=== PATIENT | female | born 1945 | race Caucasian/White ===

== ENCOUNTER → 2016-11-03 | Outpatient (CLI) | payer OTHER ==
--- NOTE | 2016-11-03 15:01 | MAMMOGRAPHY REPORT ---
BILATERAL DIGITAL SCREENING MAMMOGRAM WITH CAD: 11/03/2016 CLINICAL HISTORY: Routine screening. Patient has no complaints. TECHNIQUE: Current study was also evaluated with a Computer Aided Detection (CAD) system. Bilatera l CC and MLO views were obtained. The exam is slightly suboptimal due to inability of the patient to adequately position for the left MLO view, with pectoralis muscle not well-visualized on the MLO vi ew. COMPARISON: Comparison is made to exams dated: 10/28/2015 mammogram, 10/24/2014 mammogram, 09/12/2013 mammogram, 06/29/2011 ultrasound, 06/29/2011 mammogram, and 08/02/2012 mammogram - [facility]. BREAST COMPOSITION: There are scattered areas of fibroglandular density in both breasts. FINDINGS: No suspicious masses, calcifications, or areas of architectural distortion are noted in e ither breast. There has been no significant interval change compared to prior exams. Nodular asymme tries seen within the right breast are stable compared to prior exams. Bilateral benign-appearing c alcifications are also stable. IMPRESSION: ACR BI-RADS CATEGORY 2: BENIGN There is no mammographic evidence of malignancy. A 1 year screening mammogram is recommended. The p atient will receive written notification of the results. Approximately 10% of breast cancers are not detected with mammography. A negative mammographic repor t should not delay biopsy if a clinically suggestive mass is present. Leida Hearn M.D. /:11/03/2016 14:07:53 Plant Maintenance Technician: Jessica Beth, [facility] letter sent: Normal 1/2 BI-RADS Code: ACR BI-RADS Category 2: Benign
== END | disposition home or self-care (01) ==
LOC: C.MAMM 11:22
PROVIDERS: ATTEND Family Medicine
DX: Z12.31 Encounter for screening mammogram for malignant neoplasm of breast (principal)

== ENCOUNTER → 2017-05-04 | Outpatient (CLI) | payer OTHER ==
[2017-05-04 13:13] LABS: BASO % 0.7 %; BASO ABS # 0.04 K/uL (0-0.2); COMPLETE YES; EOS % 3.1 %; HEMATOCRIT 42.5 % (37-47); IG% 0.2 %; LYMPH % 26.4 %; LYMPH ABS # 1.52 K/uL (1.2-3.4); MEAN CELL VOLUME 92.2 fL (80-100); MEAN CORPUSCULAR HEMOGLOBIN 31.9 pg (25-34); MEAN CORPUSCULAR HGB CONC 34.6 g/dl (32-36); MEAN PLATELET VOLUME 10.3 fL (7.4-10.4); MONO % 8.7 %; NEUT % 60.9 %; PLATELET COUNT 222 K/uL (130-400); RED BLOOD COUNT 4.61 M/uL (4.2-5.4); WHITE BLOOD COUNT 5.76 K/uL (4.8-10.8)
[2017-05-04 13:47] LABS: ALT/SGPT 30 U/L (12-78); BLOOD UREA NITROGEN 13 mg/dl (7-18); BUN/CREATININE RATIO 15.1 (10-20); CALCIUM 9.4 mg/dl (8.5-10.1); CARBON DIOXIDE 28 mmol/L (21-32); CHLORIDE 111 mmol/L (98-107); CHOLESTEROL 145 mg/dl (0-200); CREATININE 0.84 mg/dl (0.60-1.20); GLUCOSE 86 mg/dl (70-99); POTASSIUM 4.5 mmol/L (3.5-5.1); SODIUM 144 mmol/L (136-145); TRIGLYCERIDES 154 mg/dl (0-150); VERY LOW DENSITY LIPOPROT CALC 31 mg/dl
[2017-05-04 13:58] LABS: ALB/GLOB RATIO 1.2 (0.9-2); ALKALINE PHOSPHATASE 90 U/L (45-117); AST/SGOT 26 U/L (15-37); CHOLESTEROL/HDL RATIO 3.5; HDL CHOLESTEROL 42 mg/dl; LDL CHOLESTEROL CALCULATED 72 mg/dl
== END | disposition home or self-care (01) ==
LOC: C.LABMFLN 09:02
PROVIDERS: ATTEND Family Medicine
DX: I65.29 Occlusion and stenosis of unspecified carotid artery (principal); E78.5 Hyperlipidemia, unspecified

== ENCOUNTER → 2017-06-02 | Outpatient (CLI) | payer OTHER ==
--- NOTE | 2017-06-02 13:32 | DIAGNOSTIC IMAGING REPORT ---
BILATERAL CAROTID DOPPLER STUDY HISTORY: Carotid artery stenosis. COMPARISON: None. TECHNIQUE: Real-time, grayscale, and color Doppler sonography of the carotid arteries was performed. Imaging reviewed in the transverse and longitudinal planes. All measurements were calculated based on NASCET criteria. FINDINGS: Antegrade flow is seen in the bilateral vertebral arteries. The brachial pressures are hemodynamically similar. Mild calcified plaque within the bilateral carotid bifurcations. The peak systolic velocity within the right ICA is 102 cm/s. The right systolic ratio is 1.5. The peak systolic velocity within the left ICA is 103 cm/s. The left systolic ratio is 1.2. IMPRESSION: No hemodynamically significant stenosis seen within the carotid arteries. Electronically signed by: Antwon Pan M.D. 06/02/2017 1:31 PM Dictated Date/Time: 06/02/2017 1:27 PM
== END | disposition home or self-care (01) ==
LOC: C.ULTR 12:52
PROVIDERS: ATTEND Family Medicine
DX: I65.29 Occlusion and stenosis of unspecified carotid artery (principal)

== ENCOUNTER → 2017-06-02 | Outpatient (CLI) | payer OTHER | END | disposition home or self-care (01) | LOC: C.MAMM 13:57 | PROVIDERS: ATTEND Family Medicine | DX: M81.0 Age-related osteoporosis without current pathological fracture (principal); M85.852 Other specified disorders of bone density and structure, left thigh ==

== ENCOUNTER → 2017-11-10 | Outpatient (CLI) | payer OTHER ==
--- NOTE | 2017-11-11 07:20 | MAMMOGRAPHY REPORT ---
BILATERAL DIGITAL SCREENING MAMMOGRAM TOMOSYNTHESIS WITH CAD: 11/10/2017 CLINICAL HISTORY: Routine screening. Patient has no complaints. TECHNIQUE: Breast tomosynthesis in addition to standard 2D mammography was performed. Current study was also evaluated with a Computer Aided Detection (CAD) system. COMPARISON: Comparison is made to exams dated: 11/03/2016 mammogram, 10/28/2015 mammogram, 10/24/2014 m ammogram, 09/12/2013 mammogram, 08/02/2012 mammogram, and 06/29/2011 mammogram - [facility]. BREAST COMPOSITION: There are scattered areas of fibroglandular density in both breasts. FINDINGS: There is a 9 mm asymmetry seen within the right medial breast with possible associated calc ifications, possibly projecting superiorly on the MLO view. Recommend spot magnification views, poss ible spot compression tomosynthesis views, and possible breast ultrasound for further evaluation. The remainder of both breasts are stable compared to prior exams, without suspicious masses, calcific ations, or areas of architectural distortion noted. Other nodular asymmetries within the right breas t are stable compared to prior exams. IMPRESSION: ACR BI-RADS CATEGORY 0: INCOMPLETE EVALUATION: NEED ADDITIONAL IMAGING EVALUATION Right medial breast asymmetry, for which additional imaging evaluation is recommended. The patient w ill be called to schedule an appointment. Approximately 10% of breast cancers are not detected with mammography. A negative mammographic report should not delay biopsy if a clinically suggestive mass is present. Leida Hearn M.D. /:11/10/2017 15:53:16 Acquisition Professional: Diana Cooley RT(R)(M)(BD), [facility] letter sent: Addl Imaging 0 BI-RADS Code: ACR BI-RADS Category 0: Incomplete Evaluation: Need Additional Imaging Evaluation
== END | disposition home or self-care (01) ==
LOC: C.MAMM 13:17
PROVIDERS: ATTEND Family Medicine
DX: Z12.31 Encounter for screening mammogram for malignant neoplasm of breast (principal); R92.8 Other abnormal and inconclusive findings on diagnostic imaging of breast

== ENCOUNTER → 2017-11-21 | Outpatient (CLI) | payer OTHER ==
--- NOTE | 2017-11-22 07:42 | MAMMOGRAPHY REPORT ---
UNILATERAL RIGHT DIGITAL DIAGNOSTIC MAMMOGRAM TOMOSYNTHESIS AND TARGETED RIGHT ULTRASOUND: 11/21/2017 CLINICAL HISTORY: 72-year-old woman called back from screening mammography for an asymmetry with poss ible associated calcifications in the upper inner right breast. TECHNIQUE: Spot magnification right CC, ML and spot compression tomosynthesis right CC and MLO views were obtained. COMPARISON: Comparison is made to exams dated: 11/10/2017 mammogram, 10/28/2015 mammogram, 11/03/2016 m ammogram, 10/24/2014 mammogram, 08/02/2012 mammogram, and 06/29/2011 ultrasound - [facility]. BREAST COMPOSITION: There are scattered areas of fibroglandular density in the right breast. FINDINGS: There is an ill-defined 6 x 7 x 9 mm mass in the upper inner middle one third of the right breast. There are associated microcalcification, best seen on the spot magnification views, located superior and posterior to the mass by 2 mm. The grouping of microcalcifications measure 1.8 mm in ma ximum dimension. These findings are suspicious for malignancy and further evaluation with ultrasound was performed. No other obvious masses, calcifications or areas of architectural distortion are see n. Targeted ultrasound was performed in the upper inner quadrant of the right breast. In the 1:00 axis, 5 cm from the nipple, there is an ill-defined taller than wide hypoechoic solid mass with indistinct margins measuring approximately 5 x 6 x 6 mm on ultrasound. This corresponds with the mammographic finding and is suspicious. Definitive characterization with an ultrasound-guided core biopsy is kendall mmended. IMPRESSION: ACR BI-RADS CATEGORY 4: SUSPICIOUS, TARGETED ULTRASOUND ACR BI-RADS CATEGORY 4: SUSPICIO US There is a persistent 6 x 7 x 9 mm mammographic mass with adjacent 1.8 mm cluster of microcalcificati ons in the 1:00 middle one third of the right breast, with sonographic correlate seen in the 1:00 axi s, 5 cm from nipple. The mass and calcifications most likely represent the same process and therefor e ultrasound-guided core biopsy is recommended for definitive characterization. These results and recommendations were discussed with the patient at the time of the exam. She tenta tively scheduled the right breast biopsy prior to leaving our department. Approximately 10% of breast cancers are not detected with mammography. A negative mammographic report should not delay biopsy if a clinically suggestive mass is present. Marisela Llamas M.D. ay/:11/21/2017 12:09:17 Vender: Jessica Beth, [facility] letter sent: Abnormal 4/5 BI-RADS Code: ACR BI-RADS Category 4: Suspicious Ultrasound BI-RADS: ACR BI-RADS Category 4: Suspici ous
== END | disposition home or self-care (01) ==
LOC: C.MAMM 10:06
PROVIDERS: ATTEND Family Medicine
DX: N63.10 Unspecified lump in the right breast, unspecified quadrant (principal); R92.0 Mammographic microcalcification found on diagnostic imaging of breast

== ENCOUNTER → 2017-11-29 | Outpatient (CLI) | payer OTHER ==
--- NOTE | 2017-11-29 11:02 | Discharge Instructions ---
Discharge Instructions Procedure Procedure Date: Nov 29, 2017. Reason for visit: Right Mass. Discharge Discharge Date: Nov 29, 2017. Discharge Diagnosis: post right breast ultrasound guided core biopsy Instructions Activity Recommendations: Additional Limitations (see below) Return to School/Work: no limitations Recommended Home Diet: No Limitations Provider Instructions: ACTIVITY RECOMMENDATIONS: * No lifting, pushing, pulling or exercising the affected side for three days. RETURN TO SCHOOL/WORK: * You may return to work/school after the procedure, but do not perform any strenuous activities for 24 to 48 hours. MEDICATIONS: * Tylenol (two 325 mg) every four to six hours if needed for mild pain (if not allergic to Tylenol). DIET: * Resume previous diet. SPECIAL CARE INSTRUCTIONS: * Keep biopsy site dry for 24 hours. May shower after 24 hours, but do not soak (bathe) incision. * May remove Tegaderm (plastic patch) tomorrow AFTER showering. * Leave the steri-strips on for one week. Allow the steri-strips to fall off by themselves. If not off after one week, you may remove them. You may place a Bandaid crosswise over the strips, if desired. * Apply ice 10 minutes on and 10 minutes off as needed. * Wear a bra at bedtime to sleep more comfortably for 2-3 days. * Your referring physician should have the results after approximately 5 to 7 business days. * Call for unusual bleeding, fever, drainage, etc or if you have any questions call [phone] during normal business hours or after hours call Dr Llamas, . FOLLOW UP VISIT: Follow-up with Referring Physician as scheduled. Concha Palomino Recommendations: Call your doctor if: * Temperature above 101 degrees * Pain not relieved by pain medicine ordered * There is increased drainage or redness from any incision * You have any unanswered questions or concerns. Your Doctors Instructions noted above were prepared by provider Marisela Llamas. Patient Signature Section: Patient Instructions Signature Page Leida Reich Patient (or Guardian) Signature/Date: I have read and understand the instructions given to me by my caregivers. Caregiver/RN/Doctor Signature/Date: The above-named patient and/or guardian has received patient instructions on this date. + Original Patient Signature Page (only) stays with chart. Please make copy for patient.
--- NOTE | 2017-11-30 07:51 | MAMMOGRAPHY REPORT ---
ULTRASOUND GUIDED BIOPSY RIGHT BREAST: 11/29/2017 CLINICAL HISTORY: 72-year-old woman presents for ultrasound-guided core biopsy of a 6 x 7 x 9 mm mass with associated faint microcalcification in the 1:00 right breast. COMPARISON: Comparison is made to exams dated: 11/21/2017 mammogram, 11/21/2017 ultrasound, 11/10/2017 ma mmogram, 11/03/2016 mammogram, 10/28/2015 mammogram, and 10/24/2014 mammogram - [facility] nter. Right PATIENT CONSENT: The procedure, risks and benefits were discussed with the patient and informed consent was obtained both verbally and in writing. Specific risks to this procedure include: bleedi ng, infection, puncture of adjacent structure, nontarget biopsy, sampling error, pain, metal allergy and medication reaction. PROCEDURE DESCRIPTION: A time out was performed and the right breast was agreed as the site of biopsy . The skin was prepped and draped in the usual sterile fashion. The taller than wide, hypoechoic ninoska d 9 mm mass in the 1:00 right breast was chosen as the target for biopsy. Subcutaneous and intraparen chymal 1% buffered lidocaine, with and without epinephrine, was administered as local anesthesia. A s kin incision was made. Through the incision, 4 samples were taken with a 14 gauge Achieve biopsy dev ice. A ribbon shaped metallic marker was placed at the biopsy site. Hemostasis was achieved after man ual compression. The patient tolerated the procedure well and there was no immediate complication. T he samples were sent to the pathology department in an appropriately labeled container. Postprocedure right CC and ML tomosynthesis images were obtained. There is a new ribbon-shaped biops y marker clip associated with the mammographic mass and calcifications in question. No significant p ostbiopsy hematoma is seen. IMPRESSION: ULTRASOUND GUIDED BIOPSY Status post ultrasound-guided core biopsy of an indeterminate 9 mm mass with associated microcalcific ation in the 1:00 middle one third of the right breast, with ribbon-shaped biopsy marker clip placed at the site. The patient will receive notification of the biopsy results from her referring physician. Marisela Llamas M.D. ay/:11/29/2017 11:48:25 Special Police Officer: Christian WYATT)(M), [facility]
--- NOTE | 2017-11-30 07:51 | MAMMOGRAPHY REPORT ---
UNILATERAL RIGHT DIGITAL DIAGNOSTIC MAMMOGRAM TOMOSYNTHESIS: 11/29/2017 CLINICAL HISTORY: Status post ultrasound-guided core biopsy of an indeterminate 9 mm mass in the 1:00 right breast. Please refer the report from right breast ultrasound-guided core biopsy performed at the same time fo r full detail. IMPRESSION: POST PROCEDURE IMAGING FOR MARKER PLACEMENT Please refer the report from right breast ultrasound-guided core biopsy performed at the same time fo r full detail. Approximately 10% of breast cancers are not detected with mammography. A negative mammographic report should not delay biopsy if a clinically suggestive mass is present. Marisela Llamas M.D. ay/:11/29/2017 11:00:54 Cosmetics Supervisor: Christian GUZMAN(R)(M), [facility] BI-RADS Code: Post Procedure Imaging For Marker Placement
== END | disposition home or self-care (01) ==
LOC: C.MAMM 10:12
PROVIDERS: ATTEND Family Medicine
DX: N63.10 Unspecified lump in the right breast, unspecified quadrant (principal); R92.0 Mammographic microcalcification found on diagnostic imaging of breast; C50.911 Malignant neoplasm of unspecified site of right female breast

== ENCOUNTER → 2017-12-08 | Outpatient (CLI) | payer OTHER ==
[~2017-12-08] MED LIST: ACET-1256 PO; CHOL100027 PO; COEN1CAP17 PO; DIPH25CA65 PO; FAMO20TA11 PO; FLUT0.15 NAE; FSMD/70 PO; HYDR-5688 PO; MULT-728 PO; OMEG10007 PO; PRVC/20 PO
== END | disposition home or self-care (01) ==
LOC: C.LABMFLN 13:21
PROVIDERS: ATTEND Physician Assistant
DX: J02.9 Acute pharyngitis, unspecified (principal)

== ENCOUNTER 2017-12-12 08:09 | Observation (INO) | payer OTHER ==
[2017-12-08 09:05] VITALS: BMI 26.0
--- NOTE | 2017-12-08 09:37 | PAT Medication Instructions ---
Service Date Dec 08, 2017. Current Home Medication List Alendronate/Cholecalciferol (Fosamax+D 70MG/2800 Iu), 1 TABLET PO WK Cholecalciferol (Vitamin D 1000 Unit), 1,000 INTER.UNIT PO QAM Coenzyme Q10 (Ubidecarenone) (Co Q 10), 1 TAB PO QAM Famotidine (Pepcid), 20 MG PO QAM Fish Oil ([place]-3), 1 CAP PO QAM Fluticasone Propionate (Nasal) (Flonase Allergy Relief), 1 SPRAY SARY QAM Multiple Vitamins W/ Minerals (Alive Once Daily Womens 5), 1 TAB PO QAM Pravastatin Sod (Pravastatin Sodium), 1 TAB PO QPM Medication Instructions For Your Scheduled Surgery -Continue as directed: Alendronate/Cholecalciferol (Fosamax+D 70MG/2800 Iu), 1 TABLET PO WK -Continue to hold: Coenzyme Q10 (Ubidecarenone) (Co Q 10), 1 TAB PO QAM Fish Oil ([place]-3), 1 CAP PO QAM - Hold the following medications the morning of surgery: Cholecalciferol (Vitamin D 1000 Unit), 1,000 INTER.UNIT PO QAM Multiple Vitamins W/ Minerals (Alive Once Daily Womens 5), 1 TAB PO QAM - Take the following medications the morning of surgery with a sip of water: Famotidine (Pepcid), 20 MG PO QAM Fluticasone Propionate (Nasal) (Flonase Allergy Relief), 1 SPRAY SARY QAM - Take the following medications as scheduled the night before surgery: Pravastatin Sod (Pravastatin Sodium), 1 TAB PO QPM If you have any questions please call us at [phone] or [phone] or [phone]
[2017-12-08 11:14] LABS: BASO % 0.4 %; BASO ABS # 0.03 K/uL (0-0.2); EOS % 3.2 %; EOS ABS # 0.23 K/uL (0-0.5); HEMATOCRIT 42.3 % (37-47); HEMOGLOBIN 14.6 g/dL (12.0-16.0); IG# 0.01 K/uL (0.00-0.02); LYMPH % 21.6 %; LYMPH ABS # 1.55 K/uL (1.2-3.4); MEAN CELL VOLUME 91.8 fL (80-100); MEAN CORPUSCULAR HEMOGLOBIN 31.7 pg (25-34); MEAN CORPUSCULAR HGB CONC 34.5 g/dl (32-36); MEAN PLATELET VOLUME 10.4 fL (7.4-10.4); MONO % 7.4 %; MONO ABS # 0.53 K/uL (0.11-0.59); NEUT % 67.3 %; NEUT ABS # 4.82 K/uL (1.4-6.5); PLATELET COUNT 222 K/uL (130-400); RED CELL DISTRIBUTION WIDTH CV 12.7 % (11.5-14.5); RED CELL DISTRIBUTION WIDTH SD 42.9 fL (36.4-46.3); WHITE BLOOD COUNT 7.17 K/uL (4.8-10.8)
[2017-12-08 11:32] LABS: CALCIUM 9.1 mg/dl (8.5-10.1); CREATININE 0.89 mg/dl (0.60-1.20); POTASSIUM 3.9 mmol/L (3.5-5.1)
[~2017-12-12] VITALS: Ht 172.7 cm; Wt 77.3 kg
[2017-12-12] VITALS (7 sets, daily range): BP systolic 115–159; BP diastolic 62–79; PULSE 67–102; TEMP 36.5–36.8; O2SAT 91–98; Ht 172.7 cm; Wt 77.3 kg
[~2017-12-12 08:09] MED LIST changes: -ACET-1256 PO; +CLINDAMYCIN IV 900 MG in DEXTROSE 5% 50ML IV SCH; -DIPH25CA65 PO; -HYDR-5688 PO; +LACTATED RINGER'S 1000ML 1,000 ML IV SCH
[2017-12-12] MEDS ORDERED: DIPH25CA65 PO (09:27)
[2017-12-12] MEDS ORDERED: ACET-1256 PO (09:27)
--- NOTE | 2017-12-12 10:10 | DIAGNOSTIC IMAGING REPORT ---
LYMPHOSCINTIGRAPHY CLINICAL HISTORY: Right-sided breast cancer. PROCEDURE: Using standard sterile technique, 4 intradermal and one deep injection of 0.51 mCi of Lymphoseek was placed in the right breast. The patient tolerated the procedure well. There were no immediate complications. The patient was subsequently transported to the surgical suite. No imaging was obtained at the referring physician's request. IMPRESSION: Injection of 0.51 mCi of Lymphoseek in the right breast. Electronically signed by: Milo Raman M.D. 12/12/2017 10:09 AM Dictated Date/Time: 12/12/2017 10:07 AM
--- NOTE | 2017-12-12 10:18 | History & Physical Bridge Note ---
H&P Re-Evaluation Bridge Note: I have examined the patient, reviewed the History & Physical and in the interval since the performance of the History & Physical I have noted the following changes of clinical significance: No changes noted
[2017-12-12] MEDS ORDERED: FENTANYL CITRATE INJ 50 MCG/1 ML 2 ML VIAL ONE (11:57)
[2017-12-12] MEDS ORDERED: PROPOFOL IV EMULSION 10 MG/ML 20 ML VIAL ONE (11:57)
[2017-12-12] MEDS ORDERED: DEXAMETHASONE SOD INJ 4 MG/ML VIAL ONE (11:57)
[2017-12-12] MEDS ORDERED: LIDOCAINE HCL 2% 2 ML VIAL (20MG/ML) ONE (11:57)
[2017-12-12] MEDS ORDERED: ONDANSETRON INJ 2 MG/ML 2 ML VIAL ONE (11:57)
[2017-12-12] MEDS ORDERED: MIDAZOLAM HCL 1 MG/ML 2ML VIAL ONE (11:57)
[2017-12-12] MEDS ORDERED: ONDANSETRON INJ 2 MG/ML 2 ML VIAL IV PRN ×2 (12:00→14:00)
[2017-12-12] MEDS ORDERED: EpHEDrine SULFATE INJ 50 MG/ML AMP IV PRN (12:00)
[2017-12-12] MEDS ORDERED: ATROPINE SULFATE 0.1 MG/ML 5ML SYR IV PRN (12:00)
[2017-12-12] MEDS ORDERED: BUPIVACAINE 0.5 % 5 MG/1 ML MPF 30ML VIAL ONE (12:24)
[2017-12-12] MEDS ORDERED: ISOSULFAN BLUE 10 MG/ML VIAL 5 ML ONE (12:24)
[2017-12-12] MEDS ORDERED: SCOPOLAMINE 1.5 MG TDSY TD ONE (12:37)
[2017-12-12] MEDS ORDERED: PHENYLEPHRINE 100MCG/ML 5ML SYR ONE (13:08)
--- NOTE | 2017-12-12 13:56 | [facility] Operative Report ---
Operative Report Operative Date Dec 12, 2017. Pre-Operative Diagnosis Right Breast Cancer Post-Operative Diagnosis Same as Preop Procedure(s) Performed Right Breast Lumpectomy with Needle Localization and with Right [place] Lymph Node Biopsy Surgeon Dr. Garcia Program Lead Surgeon(s) None Estimated Blood Loss 15 ml Findings clip/ mass w/n specimen SLN frozen negative Specimens Frozen 1. Right Breast [place] Lymph Node left room at 1317 Permanent A. Right breast tissue skin anterior, long silk lateral, short silk medial, methylene blue deep B. Additional superior tissue long silk lateral, short silk medial, methylene blue new margin C. Additional inferior tissue long silk lateral, short silk medial, methylene blue new margin Drains None Anesthesia Type General Complication(s) none Disposition Recovery Room / PACU I attest to the content of the Intraoperative Record and any orders documented therein. Any exceptions are noted below.
[2017-12-12] MEDS ORDERED: LACTATED RINGER'S 1000ML 1,000 ML IV SCH (13:59)
[2017-12-12] MEDS ORDERED: HYDROCODONE/ACETAMIN 5/325MG TAB PO PRN ×2 (14:00)
[2017-12-12] MEDS ORDERED: PROMETHAZINE HCL INJ 12.5 MG in SODIUM CHLORIDE 0.9% 50ML 50 ML IV PRN (14:00)
[2017-12-12] MEDS ORDERED: MoRPHine SULFATE 2 MG/ML CARP IV PRN (14:00)
[2017-12-12] MEDS ORDERED: MoRPHine SULFATE 4 MG/ML 1 ML CARP\\VIAL IV PRN (14:00)
--- NOTE | 2017-12-12 14:13 | MAMMOGRAPHY REPORT ---
UNILATERAL RIGHT DIGITAL DIAGNOSTIC MAMMOGRAM TOMOSYNTHESIS: 12/12/2017 CLINICAL HISTORY: Recent biopsy-proven carcinoma in the 1:00 right breast. Patient presents for preo perative needle and wire localization. Please refer to the report from right breast ultrasound-guided needle localization performed at the s mila time for full detail. IMPRESSION: Please refer to the report from right breast ultrasound-guided needle localization performed at the s mila time for full detail. Approximately 10% of breast cancers are not detected with mammography. A negative mammographic report should not delay biopsy if a clinically suggestive mass is present. Marisela Llamas M.D. ay/:12/12/2017 09:03:41 Material Reprocessing Associate: Jessica Beth, [facility] BI-RADS Code: n/a
--- NOTE | 2017-12-12 14:13 | MAMMOGRAPHY REPORT ---
SPECIMEN RIGHT BREAST: 12/12/2017 CLINICAL HISTORY: 72-year-old woman with recent biopsy-proven carcinoma in the 1:00 right breast. Sh e presents for needle localization prior to surgical excision. Please refer to the report from right breast ultrasound-guided needle localization performed at the s mila time for full detail. IMPRESSION: SPECIMEN Please refer to the report from right breast ultrasound-guided needle localization performed at the s mila time for full detail. Marisela Llamas M.D. ay/:12/12/2017 09:03:01 Newspaper Journalist: Rhina WYATT)(Giorgi), [facility]
[2017-12-12] MEDS: FENTANYL CITRATE INJ 50 MCG/1 ML 2 ML VIAL IV PRN ×2 (14:28→14:33)
--- NOTE | 2017-12-12 14:36 | OPERATIVE REPORT ---
DATE OF OPERATION: 12/12/2017 NAME OF OPERATION: Needle localization, right lumpectomy with sentinel lymph node biopsy. PREOPERATIVE DIAGNOSIS: Right breast cancer. POSTOPERATIVE DIAGNOSIS: Right breast cancer. STAFF SURGEON: Dr. Garcia. ANESTHESIA: General. DESCRIPTION OF PROCEDURE: Patient was brought in the operating room and placed on the operating table in supine position. Her right breast and axilla were prepped and draped in usual fashion. She had a needle placed in the medial right breast at the breast center and she had an injection in nuclear medicine for sentinel lymph node biopsy. 0.5% plain Marcaine was used to anesthetize the skin and subcutaneous tissue in both areas. Incision was made in the axilla carrying dissection down identifying the sentinel lymph node which was sent for frozen section, it was found to be negative. During the frozen section, we performed lumpectomy by making an elliptical incision medially around the needle carrying dissection well around the needle, removing the tissue. It was marked with right breast tissue skin anterior, needle was medial, short silk suture medial, long silk suture lateral and methylene blue deep. I took additional tissue superior and inferior. These were both marked with long silk suture lateral, short silk suture medial and then methylene blue new margin. The superior tissue was taken down to the muscle and then somewhat inferiorly. At this point, both incisions were closed, reapproximating the deep tissue using 2-0 plain catgut suture then the skin in the axilla using 4-0 nylon suture, in the breast using subcuticular 4-0 Monocryl with the knots outside the skin and then Steri-Strips. Dressings were applied and patient transferred to recovery room in stable condition. I attest to the content of the Intraoperative Record and any orders documented therein. Any exception s are noted below.
[2017-12-12] MEDS ORDERED: HYDR-5688 PO (14:38)
--- NOTE | 2017-12-12 14:41 | Discharge Instructions ---
Discharge Instructions Date of Service Dec 12, 2017. Admission Reason for Admission: Right Breast Cancer W/Hosp Loc & Nm Inj Discharge Discharge Diagnosis / Problem: Rt breast cancer Discharge Goals Goal(s): Decrease discomfort, Improve function, Improve disease control Activity Recommendations Activity Limitations: as noted below Lifting Limitations: no more than 25 pounds (for 2 weeks) Exercise/Sports Limitations: until after follow-up appointment May Resume Sexual Activity: when tolerated Shower/Bathe: tomorrow Driving or Machine Use: resume 3 days after discharge . Instructions / Follow-Up Instructions / Follow-Up SPECIAL CARE INSTRUCTIONS: * Cover incisions and change daily for comfort/drainage. * Leave steri strips in place * May use ibuprofen for pain as tolerated. * Expect some swelling and bruising. Call your doctor if: * Temperature above 101 degrees * Pain not relieved by pain medicine ordered * There is increased drainage or redness from any incision * You have any unanswered questions or concerns [phone]. FOLLOW UP VISIT: If not already scheduled, please call the office for a follow-up visit. for next week- some suture removal OFFICE PHONE NUMBER: Dr. Garcia Office Current Hospital Diet Patient's current hospital diet: Regular Diet Discharge Diet Recommended Diet: Regular Diet Procedures Procedures Performed: Right Breast Lumpectomy with Needle Localization and with Right [place] Lymph Node Biopsy Pending Studies Studies pending at discharge: no Medical Emergencies . Who to Call and When: Medical Emergencies: If at any time you feel your situation is an emergency, please call 911 immediately. . Non-Emergent Contact Non-Emergency issues call your: Primary Care Provider, Surgeon . "Provider Documentation" section prepared by Gordo Garcia. .
[2017-12-12] MEDS ORDERED: IV FLUIDS COMPLETED PRN (14:45)
--- NOTE | 2017-12-12 15:01 | Anesthesiology Progress Note ---
Anesthesia Post Op Note Date & Time Dec 12, 2017 at 15:01 Vital Signs Pain Intensity: 2 Vital Signs Past 12 Hours Date Time Temp Pulse Resp B/P (MAP) Pulse Ox O2 Delivery O2 Flow Rate FiO2 12/12/17 14:46 145/75 12/12/17 14:45 89 17 90 12/12/17 14:45 86 17 12/12/17 14:44 36.3 77 16 145/75 (89) 95 Nasal Cannula 2 12/12/17 14:41 152/86 12/12/17 14:40 70 13 92 12/12/17 14:40 71 13 12/12/17 14:36 161/81 12/12/17 14:35 70 15 12/12/17 14:35 70 15 90 12/12/17 14:31 142/76 12/12/17 14:30 71 10 12/12/17 14:30 70 10 94 12/12/17 14:29 76 13 12/12/17 14:29 71 13 90 12/12/17 14:26 166/81 12/12/17 14:24 85 16 93 12/12/17 14:24 86 16 12/12/17 14:21 166/80 12/12/17 14:19 85 19 95 12/12/17 14:19 85 19 12/12/17 14:16 157/76 12/12/17 14:14 86 23 12/12/17 14:14 86 23 95 12/12/17 14:13 88 17 94 12/12/17 14:13 87 17 12/12/17 14:13 87 17 12/12/17 14:13 88 17 94 12/12/17 14:11 159/79 12/12/17 14:11 159/79 12/12/17 14:08 87 16 12/12/17 14:08 87 16 95 12/12/17 14:08 87 16 95 12/12/17 14:08 87 16 12/12/17 14:06 164/82 12/12/17 14:06 164/82 12/12/17 14:03 36.8 95 18 174/80 (116) 95 Oxymask 10 12/12/17 14:03 96 16 12/12/17 14:03 96 16 174/80 95 12/12/17 14:03 96 16 174/80 95 12/12/17 14:03 96 16 12/12/17 10:04 36.5 67 18 159/65 (96) 98 Room Air Notes Mental Status: alert / awake / arousable, participated in evaluation Pt Amnestic to Procedure: Yes Nausea / Vomiting: adequately controlled Pain: adequately controlled Airway Patency, RR, SpO2: stable & adequate BP & HR: stable & adequate Hydration State: stable & adequate Anesthetic Complications: no major complications apparent
[2017-12-12] MEDS ORDERED: CLINDAMYCIN 600 MG/54 ML D5W IV SCH (19:00)
[2017-12-12] MEDS: CLINDAMYCIN IV 600 MG in DEXTROSE 5% 50ML 50 ML IV SCH (19:10)
[2017-12-12] MEDS ORDERED: PRAVASTATIN SOD 20 MG TAB PO SCH (21:00)
[2017-12-13] MEDS: CLINDAMYCIN IV 600 MG in DEXTROSE 5% 50ML 50 ML IV SCH ×2 (03:24→10:47)
[2017-12-13 03:27] VITALS: BP 108/65; PULSE 60; TEMP 36.6; O2SAT 93
[2017-12-13 06:19] VITALS: O2SAT 91
--- NOTE | 2017-12-13 06:32 | DISCHARGE SUMMARY ---
PRINCIPAL DIAGNOSIS: Right breast cancer. PROCEDURES: The patient underwent needle localization, right breast lumpectomy with sentinel lymph node biopsy. HISTORY OF PRESENT ILLNESS: The patient is a 72-year-old female with a biopsy proven right breast cancer for definitive surgery. HOSPITAL COURSE: The patient was brought into the hospital on 12/12/2017 after undergoing needle localization of the right breast. She also underwent injection of the right breast for sentinel lymph node biopsy. She was taken to the operating room where she underwent right breast lumpectomy with sentinel lymph node biopsy. She tolerated the procedure very well and has done well overnight and is felt stable for discharge home today to be followed in the surgical clinic within 1 week. She will also be set up for oncology and radiation therapy followup.
[2017-12-13 07:12] VITALS: BP 116/70; PULSE 74; TEMP 36.7; O2SAT 90
--- NOTE | 2017-12-13 07:37 | Anesthesiology Progress Note ---
Anesthesia Post Op Note Date & Time December 13, 2017 at 07:36 Vital Signs Pain Intensity: 0.0 Vital Signs Past 12 Hours Date Time Temp Pulse Resp B/P (MAP) Pulse Ox O2 Delivery O2 Flow Rate FiO2 12/13/17 07:12 36.7 74 18 116/70 (85) 90 Room Air 12/13/17 06:19 91 Room Air 12/13/17 03:27 36.6 60 17 108/65 (79) 93 Nasal Cannula 2.0 12/13/17 00:18 Room Air 12/12/17 23:05 36.8 68 16 115/71 (86) 94 Room Air Notes Mental Status: alert / awake / arousable Pt Amnestic to Procedure: Yes Nausea / Vomiting: adequately controlled Pain: adequately controlled Airway Patency, RR, SpO2: stable & adequate BP & HR: stable & adequate Hydration State: stable & adequate Anesthetic Complications: no major complications apparent
[2017-12-13] MEDS ORDERED: FAMOTIDINE 20 MG TAB PO SCH (09:00)
[2017-12-13 10:27] VITALS: BP 116/70; PULSE 74; TEMP 36.7; O2SAT 90
--- NOTE | 2017-12-13 12:47 | MAMMOGRAPHY REPORT ---
NEEDLE LOCALIZATION RIGHT BREAST: 12/12/2017 CLINICAL HISTORY: 72-year-old woman with recent biopsy-proven carcinoma in the 1:00 right breast. Sh araceli presents for preoperative needle and wire localization prior to lumpectomy. COMPARISON: Comparison is made to exams dated: 11/29/2017 ultrasound biopsy, 11/29/2017 mammogram, 11/21 mammogram, 11/21/2017 ultrasound, 11/10/2017 mammogram, and 11/03/2016 mammogram - [facility]. PATIENT CONSENT: The risks of the procedure were explained to the patient and informed consent was ob tained. The patient denied eating or drinking anything this morning that would preclude anesthesia. She also denied allergy to lidocaine. PROCEDURE DESCRIPTION: Prior right breast imaging including diagnostic mammograms and ultrasound date d 11/21/2017, ultrasound-guided core biopsy and postprocedure mammograms dated 11/29/2017 were reviewed. The irregular mass and associated ribbon-shaped biopsy marker clip in the 1:00 middle one third of the right breast are the intended target for preoperative localization. The lesion was targeted with ultrasound guidance, with the patient in the supine position and right arm extended. The skin of th e right breast was cleansed with Betadine. 1% buffered Lidocaine without epinephrine was administere d as local anesthesia. A 5cm Muhammad II needle and wire combination was inserted into the right breas t through the center of the mass in question. Optimal positioning was confirmed and the wire was loc ked in place, leaving both the needle and wire within the breast, as per surgeon's preference. Post localization right CC and MLO 2D and tomosynthesis images were obtained which demonstrates the locali zing needle adjacent to the ribbon-shaped biopsy marker clip, approximately 8 mm from the distal tip of the needle. The entire procedure including approach and needle length were discussed with the ope rating surgeon prior to surgery. The patient tolerated the procedure well and there was no immediate complication. She was transferred to the hospital operating room in satisfactory condition. The specimen radiograph from right lumpectomy demonstrates the localizing needle and wire combination , an area of density, the small faint associated clustered microcalcifications (H - 5) and the ribbon -shaped biopsy marker clip (G - 5), compatible with successful preoperative localization and subseque nt surgical excision. Final pathology is pending. IMPRESSION: NEEDLE LOCALIZATION Status post preoperative needle and wire localization for biopsy-proven carcinoma in the 1:00 right b reast. The imaged specimen includes the intended abnormalities. The patient will receive notification of the pathology results from her referring physician. Marisela Llamas M.D. ay/:12/12/2017 14:41:45 Manager Talent Management: Rhina GUZMAN(José Antonio)(Giorgi), [facility]
--- NOTE | 2017-12-13 15:36 | Progress Note ---
Progress Note Date of Service December 13, 2017. Progress Note Hospitalist service was consulted for medical management, however, the patient was discharged to home before I was able to see her. I reviewed the chart and did not see any concerning medical issues. Consult not completed.
== END 2017-12-13 13:27 | disposition home or self-care (01) ==
LOC: C.ACU 08:09 → C.MSW 14:09 → ENRESERV 15:10
PROVIDERS: ADMIT Surgery; ATTEND Surgery
DX: C50.911 Malignant neoplasm of unspecified site of right female breast (principal); K21.9 Gastro-esophageal reflux disease without esophagitis; E78.5 Hyperlipidemia, unspecified; M81.0 Age-related osteoporosis without current pathological fracture; F41.9 Anxiety disorder, unspecified; G83.24 Monoplegia of upper limb affecting left nondominant side; Z82.49 Family history of ischemic heart disease and other diseases of the circulatory system; Z87.891 Personal history of nicotine dependence; Z79.899 Other long term (current) drug therapy; Z88.6 Allergy status to analgesic agent; Z88.1 Allergy status to other antibiotic agents; Z88.0 Allergy status to penicillin; Z88.2 Allergy status to sulfonamides; Z88.8 Allergy status to other drugs, medicaments and biological substances; Z80.3 Family history of malignant neoplasm of breast

== ENCOUNTER → 2017-12-28 | Outpatient (CLI) | payer OTHER ==
[~2017-12-28] MED LIST changes: +ACET-1256 PO; -CLINDAMYCIN IV 900 MG in DEXTROSE 5% 50ML IV SCH; +DIPH25CA65 PO; +HYDR-5688 PO; -LACTATED RINGER'S 1000ML 1,000 ML IV SCH
--- NOTE | 2017-12-28 14:48 | DIAGNOSTIC IMAGING REPORT ---
PET/CT SKULL-THIGH CLINICAL HISTORY: BREAST CANCER COMPARISON STUDY: No previous studies for comparison. FINDINGS: The patient was injected with 14.2 mCi of F-18 labeled FDG. Findings standard induction phase, PET/CT scanning is performed from the skull base to the upper thigh region. Uptake within neck is felt to be physiologic. Uptake within the thorax is felt to be physiologic. There is increased activity within the right breast which is felt to be postsurgical. There is a right breast seroma. There is no pathologic mediastinal or hilar nga activity. There is minimal diffuse increased activity at the left axilla, likely postsurgical. Within the abdomen and pelvis, there is physiologic urinary tract and bowel activity. There is no pathologic nga activity. There is enlargement of the right S2 nerve root at the level of the sacral foramen. This demonstrates increased FDG activity with SUV maximum of 4.2. An MRI without a with gadolinium with attention to this area is recommended. There is a small focus of increased FDG activity which fuses to the soft tissues immediately lateral to the posterior aspect of the right acetabulum. This is SUV maximum of 5. There is no CT correlate. IMPRESSION: 1. Increased activity within the right breast and right axilla which is likely postsurgical 2. Focal enlargement of the right S2 nerve root which is FDG avid. An MRI without a with gadolinium with attention to this area is recommended. 3. Unexplained focus of increased FDG activity with SUV maximum of 5, fusing to the soft tissues immediately lateral to the posterior aspect of the right acetabulum. There is no CT correlate. Electronically signed by: Castro Caballero M.D. 12/28/2017 2:47 PM Dictated Date/Time: 12/28/2017 2:37 PM
== END | disposition home or self-care (01) ==
LOC: C.PET 11:35
PROVIDERS: ATTEND Internal Medicine Hematology & Oncology
DX: D49.3 Neoplasm of unspecified behavior of breast (principal)

== ENCOUNTER → 2018-03-24 | Outpatient (CLI) | payer OTHER ==
[~2018-03-24] MED LIST changes: +ANAS1TAB59 PO; -HYDR-5688 PO
[2018-03-24 09:47] VITALS: BP 148/71; PULSE 72; TEMP 36.6; O2SAT 98
--- NOTE | 2018-03-24 11:32 | Radiation Oncology Follow-Up ---
Radiation Oncology Follow-Up Date of Visit Mar 24, 2018. 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 She received 5130 cGy utilizing hypo-fractionation. Last Edited By: Yenny Donald on Mar 02, 2018 16:23 History of Present Illness We are seeing Ms. Reich in consultation at the request of Dr. Arango and Dr. Garcia. ECOG PS: 0 Ms. Reich presented with an abnormal mammogram. 11/10/2017 --- bilateral screening mammogram with Tomosynthesis --- IMPRESSION: ACR BI-RADS CATEGORY 0: INCOMPLETE EVALUATION: NEED ADDITIONAL IMAGING EVALUATION. Right medial breast asymmetry, for which additional imaging evaluation is recommended. The patient will be called to schedule an appointment. 11/21/2017 --- unilateral right diagnostic mammogram and ultrasound --- IMPRESSION : ACR BI-RADS CATEGORY 4: SUSPICIOUS, TARGETED ULTRASOUND ACR BI-RADS CATEGORY 4: SUSPICIOUS. There is a persistent 6 x 7 x 9 mm mammographic mass with adjacent 1.8 mm cluster of microcalcifications in the 1:00 middle one third of the right breast, with sonographic correlate seen in the 1:00 axis, 5 cm from nipple. The mass and calcifications most likely represent the same process and therefore ultrasound-guided core biopsy is recommended for definitive characterization. 11/29/2017 --- breast, right, 8 mm mass in the right breast at 1:00 biopsy --- invasive ductal carcinoma, grade 2, no DCIS, no LVSI, estrogen receptor positive , progesterone receptor positive, HER-2 negative. 12/12/2017 --- right breast lumpectomy and sentinel lymph node biopsy by Dr. Gordo Garcia --- right breast lumpectomy: Invasive ductal carcinoma with micropapillary features, 1 cm in greatest dimension. Grade 2. DCIS present. No LVSI. Initial margins were close however margins were excised and negative after reexcision during initial operation. One sentinel lymph node excised and negative for metastatic carcinoma. pT1bN0(sn). 12/23/2017 --- medical oncology consultation with Dr. Nick Arango --- Dr. Arango has recommended consideration of adjuvant radiation therapy. Additionally, he is recommended consideration of adjuvant hormonal therapy. He has ordered an Oncotype DX recurrence test to determine the risk of chemotherapy. He is also recommended a PET/CT scan. 12/28/2017 --- PET/CT --- IMPRESSION: 1. Increased activity within the right breast and right axilla which is likely postsurgical 2. Focal enlargement of the right S2 nerve root which is FDG avid. An MRI without a with gadolinium with attention to this area is recommended. 3. Unexplained focus of increased FDG activity with SUV maximum of 5, fusing to the soft tissues immediately lateral to the posterior aspect of the right acetabulum. There is no CT correlate. 01/06/2018 --- Oncotype DX breast recurrence score --- recurrence score result 11 , low risk. We are now seeing the patient in consultation to discuss the role of adjuvant radiation therapy. The patient is scheduled to see Dr. Arango in early January 2018. Currently, the patient is doing relatively well overall. She has no complaints. She returned for a CT simulation and was found to be a candidate for hypo- fractionation. She completed radiation therapy February 20, 2018. She received 5130 cGy. Interim History She has been doing well over the past month. She does have one area of irritation in the central portion of the incision line. She states that this area has remained slightly red and there is associated itching. There are 3 small slightly yellow discolored firm areas along this area of redness. There is been no drainage. She denies pain. She is noted no other areas of the breast that have remained discolored. She does have some moles on her skin that are a darker color since completing the radiation. There was also a mole that had some dry skin that peeled. This healed without difficulty. She recently saw the cable cutter and swager and showed her this area. She plans to follow this. There is a small remaining light brown mole. She has been using Aquaphor. She has been seen in medical oncology and has started anastrozole. She is tolerating this well and does not describe any side effects. She did state that they are going to follow her DEXA scan closely because there is concern for osteoporosis. Allergies Coded Allergies: Ciprofloxacin (Verified Allergy, Unknown, unsure, 12/12/17) Penicillins (Verified Allergy, Unknown, RASH, 12/12/17) Sulfa Antibiotics (Verified Allergy, Unknown, RASH, 12/12/17) Aspirin (Verified Adverse Reaction, Unknown, stomach pain, 12/12/17) Erythromycin (Verified Adverse Reaction, Unknown, stomach problems and burning in throat, 12/12/17) Simvastatin (Verified Adverse Reaction, Unknown, muscle tenderness, ) Home Medications Scheduled Alendronate/Cholecalciferol (Fosamax+D 70MG/2800 Iu), 1 TABLET PO WK Anastrozole (Arimidex), 1 TAB PO DAILY Cholecalciferol (Vitamin D 1000 Unit), 1,000 INTER.UNIT PO QAM Coenzyme Q10 (Ubidecarenone) (Co Q 10), 1 TAB PO QAM Diphenhydramine Hcl (Benadryl Allergy), 1 CAP PO DIRECTED Fish Oil ([place]-3), 1 CAP PO QAM Multiple Vitamins W/ Minerals (Alive Once Daily Womens 5), 1 TAB PO QAM Pravastatin Sod (Pravastatin Sodium), 1 TAB PO QPM Scheduled PRN Acetaminophen (Tylenol), 500 MG PO Q6 PRN for Pain Famotidine (Pepcid), 20 MG PO BID PRN for Indigestion Fluticasone Propionate (Nasal) (Flonase Allergy Relief), 1 SPRAY SARY QAM PRN for Nasal Congestion Review of Systems Gastrointestinal: Symptoms: WNL GI Comments: (no change ) Oral: Symptoms: No Problems Respiratory: Symptoms: WNL, Dry Cough Other Respiratory: occ dry cough Urinary: Symptoms: Nocturia Comments: nocturia times 1 Skin: Symptoms: Mod-Brisk Erythema Other Skin Symptoms: red area size of quarter on the incision line / right breast ,itchy Breast: Right Upper Arm Measurement: 32.0 Right Mid Arm Measurement: 25.5 Right Wrist Measurement: 17.4 Left Upper Arm Measurement: 34.0 Left Mid Arm Measurement: 26.0 Left Wrist Measurement: 16.5 Arm Dominence: Right Patient Cosmetic Evaluation: Fair Staff Cosmetic Evalaluation: Fair Additional Notes: She completed a distress management report and answered "no" to all questions. Physical Exam Vital Signs Date Time Temp Pulse Resp B/P (MAP) Pulse Ox O2 Delivery O2 Flow Rate FiO2 03/24/18 09:47 36.6 72 16 148/71 98 ECOG Performance Status: 0 Fatigue: None General Appearance: no apparent distress Eyes: normal inspection, EOMI ENT: normal ENT inspection, hearing grossly normal Neck: no adenopathy, thyroid normal Respiratory/Chest: lungs clear Breast: Breast examination reveals well-healed incisions of the right breast. There is a area of redness approximately 2 cm in diameter in the central portion of the incision line. There are three 5 mm raised firm nodules along the area of redness. Otherwise there are no masses or tenderness and no axillary adenopathy. There is some hyperpigmentation of some of the moles. She has no skin retractions. There is no axillary adenopathy. Using the [place] score cosmesis she has a good outcome. The left breast showed no masses or tenderness and no axillary adenopathy. Cardiovascular: regular rate, rhythm, no gallop, no murmur Neurologic/Psychiatric: no motor/sensory deficits, alert, normal mood/affect Skin: warm/dry Pain Management Patient Reports Pain: No Side: Bilateral Patient Preferred Pain Scale: 0 - 10 Initial Pain Intensity: 0.0 Pain Management Plan She denies pain therefore requires no pain management. Laboratory Laboratory Results: not applicable Pathology Pathology Results: were reviewed, and pertinent findings noted in HPI Imaging Imaging Studies: were reviewed, and pertinent findings noted in HPI Assessment & Plan Plan: The patient was seen and examined by Dr. Mcallister. To the area of redness she is going to use Lidex. A prescription was written for 0.05%. This will be applied 4 times daily. 30 g tube was given and 3 refills. She continues on the anastrozole. She will continue follow-up with the primary care provider and medical oncologist. Today we completed a cancer survivorship care plan. A copy of the document was given to the patient. She was given a survivorship booklet. Mammography will be scheduled for the right breast in 2 months and bilateral mammography in 8. These will be digital diagnostic mammograms. We discussed the prior MRI of the lumbar spine that had shown a possible schwannoma. We are planning to recheck an MRI in 6 months. This should be scheduled for the end of July. We asked her to return to our office in 1 week for recheck of the skin. After that visit she will return in 6 months. She may call our office if she has any questions or concerns in the interim. Assessment & Plan (Attending) I agree with note created by Yenny Donald PA-C. I reviewed the patient's chart and information with her. I have examined and evaluated the patient. I reviewed relevant clinical information and answered the patient's and/or family' s questions. [employer] APPRENTICE [employer] Total Time In Follow-Up I spent 20 minutes speaking to the patient in performing examination. I spent 20 minutes reviewing information, preparing the survivorship document, and completing this note. [place] Total Time (Attending) In Follow-Up I spent 15 minutes examining and counseling the patient. [employer] Copy To Gordo Garcia M.D.; Jaylene Hannah M.D.; Nick Arango D.O.
== END | disposition home or self-care (01) ==
LOC: C.ONC 09:39
PROVIDERS: ATTEND Physician Assistant Medical
DX: Z08 Encounter for follow-up examination after completed treatment for malignant neoplasm (principal); Z92.3 Personal history of irradiation; Z85.3 Personal history of malignant neoplasm of breast